=== PATIENT | female | born 1980 | race Caucasian/White ===

== ENCOUNTER 2017-03-08 06:59 | Emergency (ER) | payer OTHER ==
[2017-03-08] MEDS ORDERED: Sodium Chloride 0.9% 1000 ML 1,000 ML IV STA (07:34)
[2017-03-08] MEDS ORDERED: Zofran 4 MG/2 ML VIAL IV ONE (07:34)
[2017-03-08] MEDS ORDERED: Zofran 4 MG/2 ML VIAL ONE (07:37)
[2017-03-08] MEDS ORDERED: Sodium Chloride 0.9% 1000 ML 1,000 ML ONE (07:37)
--- NOTE | 2017-03-08 07:48 | ERPHSYRPT ---
- History of Present Illness Time Seen by Provider: 03/08/17 07:33 Source: patient Exam Limitations: no limitations Patient Subjective Stated Complaint: pt states last pm at 2100 she developed numbness to left side of mouth and achiness in left arm. Triage Nursing Assessment: pt pinkl, warm, dry. ambulated into ER without difficulty. pt speach appropriate no slurring or garbeled. pt laert and oriented x3. pt currently has a month haltor monitor in place. no facila drooping. Physician History: The patient is a 36-year-old female with multiple complaints stating that she didn't feel well on her way to work so she wanted to be evaluated. She complains of a numb feeling in her left inner cheek that began yesterday evening at 9:00. She also developed some achiness in her left arm and shoulder from approximately her neck down to her elbow. And now today or she is going into work she is feeling nauseated and generally not feeling well. Nothing makes the cheek numbness or left arm achiness better or worse. Moving her arm does not make it worse. She has not taken any medicines. About 2 weeks ago she began having intermittent chest tightness. She has seen her local physician 2 times and the first time was placed on a 24 hour orange picker. The second time she was placed on a 30 day orange picker. She has not had any chest tightness today or yesterday. Her past medical history is significant for an emergency . She also stated that during her last vaginal delivery she threw a "clot". A large workup was done including a head CT. She has been doing fine ever since that episode. Timing/Duration: yesterday, hour(s) (10) Severity: mild Modifying Factors: Improves With: nothing Associated Symptoms: nausea Allergies/Adverse Reactions: zolpidem [From Ambien] Adverse Reaction (Verified 03/08/17 07:14) Hx Tetanus, Diphtheria Vaccination/Date Given: Yes (up to date) Hx Influenza Vaccination/Date Given: No Hx Pneumococcal Vaccination/Date Given: No Immunizations Up to Date: Yes - Review of Systems Constitutional: No Fever, No Chills Eyes: No Symptoms Ears, Nose, & Throat: No Symptoms Respiratory: No Cough, No Dyspnea Cardiac: No Chest Pain, No Edema, No Syncope Abdominal/Gastrointestinal: Nausea Genitourinary Symptoms: No Dysuria Musculoskeletal: No Back Pain, No Neck Pain Skin: No Rash Neurological: Sensory Changes Psychological: No Symptoms Endocrine: No Symptoms Hematologic/Lymphatic: No Symptoms Immunological/Allergic: No Symptoms All Other Systems: Reviewed and Negative - Past Medical History Pertinent Past Medical History: No - Past Surgical History Past Surgical History: Yes Female Surgical History: Hysterectomy, Section - Social History Smoking Status: Current every day smoker How long have you smoked: 20 Exposure to second hand smoke: No Drug Use: none Patient Lives Alone: No - Female History Hx Last Menstrual Period: hyster - Nursing Vital Signs Nursing Vital Signs: Initial Vital Signs Temperature 97.7 F 03/08/17 07:08 Pulse Rate 83 03/08/17 07:08 Respiratory Rate 18 03/08/17 07:08 Blood Pressure 127/81 03/08/17 07:08 O2 Sat by Pulse Oximetry 100 03/08/17 07:08 Pain Scale Pain Intensity 0 - Physical Exam General Appearance: no apparent distress, alert Eye Exam: PERRL/EOMI, eyes nml inspection Ears, Nose, Throat Exam: normal ENT inspection, TMs normal, pharynx normal, moist mucous membranes Neck Exam: normal inspection, non-tender, supple, full range of motion Respiratory Exam: normal breath sounds, lungs clear, No respiratory distress Cardiovascular Exam: regular rate/rhythm, normal heart sounds, normal peripheral pulses Gastrointestinal/Abdomen Exam: soft, normal bowel sounds, No tenderness, No mass Pelvic Exam: not done Rectal Exam: not done Back Exam: normal inspection, normal range of motion, No CVA tenderness, No vertebral tenderness Extremity Exam: normal inspection, normal range of motion, pelvis stable, No parasthesia, No limited range of motion, No tenderness Neurologic Exam: alert, oriented x 3, cooperative, director prospect II-XII nml as tested, sensation nml, No motor deficits, No sensory deficit Skin Exam: normal color, warm, dry, No rash Lymphatic Exam: No adenopathy SpO2 Interpretation: normal SpO2: 100 Oxygen Delivery: Room Air - Course EKG Interpreted by Me: RATE, Sinus Rhythm, NORMAL AXIS, NORMAL INTERVALS, NORMAL QRS, NORMAL ST-T - Radiology Exams Chest X-ray Interpretation: Teleradiologist Report, Negative (Per Dr El) - CT Exams Head CT Interpretation: Negative, Tele-radiologist Report (Per Dr El) Ordered Tests: Active Orders 24 hr Category Date Time Status EKG-ER Only STAT Care 03/08/17 07:34 Active IV Insertion STAT Care 03/08/17 07:34 Active CHEST 2 VIEWS (PA AND LAT) Stat Exams 03/08/17 07:34 Completed HEAD WITHOUT CONTRAST [CT] Stat Exams 03/08/17 07:36 Completed CBC W DIFF Stat Lab 03/08/17 07:20 Completed CMP Stat Lab 03/08/17 07:20 Completed CULTURE,URINE Stat Lab 03/08/17 07:20 Received LIPASE Stat Lab 03/08/17 07:20 Completed UA W/ MICROSCOPIC Stat Lab 03/08/17 07:20 Completed Urine Triage Profile Stat Lab 03/08/17 07:20 Completed Medication Summary Discontinued Medications Generic Name Dose Route Start Last Admin Trade Name Toddq PRN Reason Stop Dose Admin Sodium Chloride 1,000 mls @ 999 mls/hr 03/08/17 07:34 03/08/17 07:44 Sodium Chloride 0.9% 1000 Ml IV 03/08/17 08:34 999 mls/hr .Q1H1M STA Administration Sodium Chloride Confirm 03/08/17 07:37 Sodium Chloride 0.9% 1000 Ml Administered 03/08/17 07:38 Dose 1,000 mls @ ud .ROUTE .STK-MED ONE Ondansetron HCl 4 mg 03/08/17 07:34 03/08/17 07:45 Zofran 4 Mg/2 Ml Vial IV 03/08/17 07:35 4 mg STAT ONE Administration Ondansetron HCl Confirm 03/08/17 07:37 Zofran 4 Mg/2 Ml Vial Administered 03/08/17 07:38 Dose 4 mg .ROUTE .STK-MED ONE Potassium Chloride 20 meq 03/08/17 08:20 03/08/17 08:24 Klor Con 10 Meq PO 03/08/17 08:21 20 meq STAT ONE Administration Potassium Chloride Confirm 03/08/17 08:23 Klor Con 10 Meq Administered 03/08/17 08:24 Dose 20 meq PO .STK-MED ONE Lab/Rad Data: Laboratory Result Diagrams 03/08/17 07:20 03/08/17 07:20 Laboratory Results 03/08/17 03/08/17 03/08/17 Range/Units 07:20 07:20 07:20 WBC 9.2 (4.0-10.5) K/mm3 RBC 4.27 (4.1-5.4) M/mm3 Hgb 12.3 (12.0-16.0) gm/dl Hct 37.9 (35-47) % MCV 88.8 (78-100) fl MCH 28.8 (26-32) pg MCHC 32.5 (32-36) g/dl RDW 13.7 (11.5-14.0) % Plt Count 248 (150-450) K/mm3 MPV 11.2 H (6-9.5) fl Gran % 57.4 (36.0-66.0) % Lymphocytes % 33.2 (24.0-44.0) % Monocytes % 5.5 (0.0-12.0) % Eosinophils % 3.6 (0.00-5.0) % Basophils % 0.3 (0.0-0.4) % Basophils # 0.03 (0-0.4) Sodium 142 (136-145) mEq/L Potassium 3.2 L (3.5-5.1) mEq/L Chloride 105 (98-107) mEq/L Carbon Dioxide 26.4 (21-32) mEq/L Anion Gap 13.9 (5-15) MEQ/L BUN 13 (9-20) mg/dL Creatinine 1.03 (0.55-1.30) mg/dl Estimated GFR > 60 ML/MIN Glucose 119 H (70-110) MG/DL Calcium 9.2 (8.5-10.1) mg/dL Total Bilirubin 0.40 (0.2-1.0) mg/dL AST 16 (15-37) U/L ALT 19 (12-78) U/L Alkaline Phosphatase 83 (46-116) U/L Serum Total Protein 7.2 (6.4-8.2) gm/dL Albumin 4.0 (3.4-5.0) g/dL Lipase 175 (73-393) U/L Ur Collection Type Urine Color (YELLOW) Urine Appearance (CLEAR) Urine pH (5-6) Ur Specific [place] (1.005-1.025) Urine Protein (Negative) Urine Ketones (NEGATIVE) Urine Blood (0-5) Marco/ul Urine Nitrite (NEGATIVE) Urine Bilirubin (NEGATIVE) Urine Urobilinogen (0-1) mg/dL Ur Leukocyte Esterase (NEGATIVE) Urine Microscopic RBC (0-2) /HPF Urine Microscopic WBC (0-5) /HPF Ur Epithelial Cells (FEW) /HPF Urine Culture Reflexed (NO) Urine Glucose (NEGATIVE) mg/dL Urine Opiates Level NEG. (NEGATIVE) Ur Methadone NEG. (NEGATIVE) Urine Barbiturates NEG. (NEGATIVE) Ur Phencyclidine (PCP) NEG. (NEGATIVE) Urine Amphetamine NEG. (NEGATIVE) U Benzodiazepine Level NEG. (NEGATIVE) Urine Cocaine NEG. (NEGATIVE) Urine Marijuana (THC) NEG. (NEGATIVE) Specimen Received 03/08/17 Range/Units 07:20 WBC (4.0-10.5) K/mm3 RBC (4.1-5.4) M/mm3 Hgb (12.0-16.0) gm/dl Hct (35-47) % MCV (78-100) fl MCH (26-32) pg MCHC (32-36) g/dl RDW (11.5-14.0) % Plt Count (150-450) K/mm3 MPV (6-9.5) fl Gran % (36.0-66.0) % Lymphocytes % (24.0-44.0) % Monocytes % (0.0-12.0) % Eosinophils % (0.00-5.0) % Basophils % (0.0-0.4) % Basophils # (0-0.4) Sodium (136-145) mEq/L Potassium (3.5-5.1) mEq/L Chloride (98-107) mEq/L Carbon Dioxide (21-32) mEq/L Anion Gap (5-15) MEQ/L BUN (9-20) mg/dL Creatinine (0.55-1.30) mg/dl Estimated GFR ML/MIN Glucose (70-110) MG/DL Calcium (8.5-10.1) mg/dL Total Bilirubin (0.2-1.0) mg/dL AST (15-37) U/L ALT (12-78) U/L Alkaline Phosphatase (46-116) U/L Serum Total Protein (6.4-8.2) gm/dL Albumin (3.4-5.0) g/dL Lipase (73-393) U/L Ur Collection Type VOID Urine Color YELLOW (YELLOW) Urine Appearance CLEAR (CLEAR) Urine pH 5.0 (5-6) Ur Specific [place] 1.015 (1.005-1.025) Urine Protein NEGATIVE (Negative) Urine Ketones NEGATIVE (NEGATIVE) Urine Blood 250 (0-5) Marco/ul Urine Nitrite NEGATIVE (NEGATIVE) Urine Bilirubin NEGATIVE (NEGATIVE) Urine Urobilinogen NORMAL (0-1) mg/dL Ur Leukocyte Esterase TRACE (NEGATIVE) Urine Microscopic RBC 2-5 (0-2) /HPF Urine Microscopic WBC 2-5 (0-5) /HPF Ur Epithelial Cells RARE (FEW) /HPF Urine Culture Reflexed YES (NO) Urine Glucose NEGATIVE (NEGATIVE) mg/dL Urine Opiates Level (NEGATIVE) Ur Methadone (NEGATIVE) Urine Barbiturates (NEGATIVE) Ur Phencyclidine (PCP) (NEGATIVE) Urine Amphetamine (NEGATIVE) U Benzodiazepine Level (NEGATIVE) Urine Cocaine (NEGATIVE) Urine Marijuana (THC) (NEGATIVE) Specimen Received 03/08/2017 0740 - Progress Progress: improved Progress Note: 03/08/17 08:43 Pt feeling better after fluids and zofran 4 mg IV. - Departure Time of Disposition: 08:44 Departure Disposition: Home Clinical Impression: Nausea, Left arm pain, Numbness around mouth, Hypokalemia Condition: Stable Critical Care Time: No Referrals: PATIENCE QUIROGA, [employer] [Primary Care Provider] - Additional Instructions: You have a decreased potassium level in your blood. You were given potassium 20 mEq by mouth in the ER. For nausea you were given Zofran 4 mg and fluids by IV. Take Zofran 4 mg ODT every 6 hours as needed. Your head CT, EKG, and chest xray were normal. Follow-up in one to 2 days. Prescriptions: Ondansetron ODT 4 MG [Zofran Odt 4 mg] 1 tab PO Q6H PRN PRN #10 tab.rapdis PRN Reason: Nausea/Vomiting
[2017-03-08 07:54] LABS: BASOPHIL % 0.3 % (0.0-0.4); Eosinophil % 3.6 % (0.00-5.0); Granulocytes % 57.4 % (36.0-66.0); Lymphocytes % 33.2 % (24.0-44.0); Mean Cell Volume 88.8 fl (78-100); Mean Corpuscular Hemoglobin 28.8 pg (26-32); Mean Platelet Volume 11.2 fl (6-9.5); Monocytes % 5.5 % (0.0-12.0); Platelet Count 248 K/mm3 (150-450); Red Blood Count 4.27 M/mm3 (4.1-5.4); Red Cell Distribution Width 13.7 % (11.5-14.0); White Blood Count 9.2 K/mm3 (4.0-10.5)
[2017-03-08 08:09] LABS: Collection Type VOID
[2017-03-08 08:10] LABS: Bilirubin NEGATIVE (NEGATIVE); Blood 250 Ery/ul (0-5); COMPLETE URINE MICROSCOPIC? YES; Epithelial Cells RARE /HPF (FEW); Glucose NEGATIVE (NEGATIVE); Leukocyte Esterase TRACE (NEGATIVE)
[2017-03-08 08:11] LABS: ADD URINE CULTURE? YES (NO)
[2017-03-08 08:14] LABS: ALKALINE PHOSPHATASE 83 U/L (46-116); ANION GAP 13.9 MEQ/L (5-15); BLOOD UREA NITROGEN 13 mg/dL (9-20); CHLORIDE 105 mEq/L (98-107); Carbon Dioxide 26.4 mEq/L (21-32); Glucose 119 MG/DL (70-110); LIPASE 175 U/L (73-393); Potassium 3.2 mEq/L (3.5-5.1); SGOT/AST 16 U/L (15-37); SGPT/ALT 19 U/L (12-78); SODIUM 142 mEq/L (136-145); Total Protein 7.2 gm/dL (6.4-8.2)
[2017-03-08] MEDS ORDERED: Klor Con 10 MEQ PO ONE ×2 (08:20→08:23)
--- NOTE | 2017-03-08 08:32 | XRAY ---
Indication: Left arm and cheek numbness. Multiple contiguous axial images obtained through the head without contrast. Comparison: None Normal appearing brain parenchyma, ventricles, and bony calvarium. Visualized paranasal sinuses and mastoid air cells are clear. Impression: Normal CT head without contrast exam. CT DI 70.77
--- NOTE | 2017-03-08 08:38 | XRAY ---
Indication: Chest pain. Comparison: July 11, 2007. PA/lateral chest again demonstrates normal heart, lungs, and bony thorax.
[2017-03-08 09:10] VITALS: BP 117/68; PULSE 68; O2SAT 98
== END 2017-03-08 09:10 | disposition home or self-care (01) ==
LOC: ED 06:59
DX: R11.0 Nausea (principal); M79.602 Pain in left arm; R20.0 Anesthesia of skin; E87.6 Hypokalemia
CPT/HCPCS: 36000; 36415; 70450; 71020; 80053; 80307; 81000; 83690; 85025; 87086; 93005; 96360; 96374; 99284; J2405; A9270-GY

== ENCOUNTER 2019-01-08 14:44 | Emergency (ER) | payer OTHER ==
[2019-01-08 15:33] VITALS: BP 96/64; PULSE 73; O2SAT 99
--- NOTE | 2019-01-08 16:00 | ERPHSYRPT ---
- History of Present Illness Time Seen by Provider: 01/08/19 15:56 Source: patient Exam Limitations: no limitations Patient Subjective Stated Complaint: Pt began bleeding vaginally and went to the para machine operator and they prescribed some estrogen, back began having pain and twitching, states that her urethra is coming out, reports that you can see tissue, having problems stopping urinating and it parsons and continues to dribble Triage Nursing Assessment: Pt's vitals wnl, denies pain, has pressure, pressure in her lower back and by her vagina, Physician History: 38-year-old female without any significant past medical history for few weeks . She started having a burning and tearing pain around her due to trying in her vagina and she is feeling like her urethritis falling down and due to that she is not able to hold her urine at all. She has become incontinent without sensory of illness. She was seen by her para machine operator and see prescribe her estrogen vaginal cream, which has not helped her at all. Timing/Duration: day(s) Quality: burning Onset Location: vaginal Pain Radiation: urethral Severity of Pain-Max: moderate Severity of Pain-Current: moderate Prior abdominal problems: none Sexual intercourse history: non-contributory Modifying Factors: Improves With: movement, walking (makes it worse) Associated Symptoms: dysuria, nocturia, urinary frequency, loss of bladder control Allergies/Adverse Reactions: zolpidem [From Ambien] Adverse Reaction (Verified 01/08/19 15:34) Home Medications: Levetiracetam 500 mg PO DAILY 01/08/19 [History] Hx Tetanus, Diphtheria Vaccination/Date Given: Yes (up to date) Hx Influenza Vaccination/Date Given: No Hx Pneumococcal Vaccination/Date Given: No - Review of Systems Constitutional: No Fever, No Chills Eyes: No Symptoms Ears, Nose, & Throat: No Symptoms Respiratory: No Cough, No Dyspnea Cardiac: No Chest Pain, No Edema, No Syncope Abdominal/Gastrointestinal: No Abdominal Pain, No Nausea, No Vomiting, No Diarrhea Genitourinary Symptoms: Dysuria, Frequency, Hesitancy, Urgency, Flank Pain Musculoskeletal: No Back Pain, No Neck Pain Skin: No Rash Neurological: No Dizziness, No Focal Weakness, No Sensory Changes Psychological: No Symptoms Endocrine: No Symptoms All Other Systems: Reviewed and Negative - Past Medical History Pertinent Past Medical History: Yes Neurological History: Seizures - Past Surgical History Past Surgical History: Yes Female Surgical History: Hysterectomy, Section Other Surgical History: lasik - Social History Smoking Status: Current every day smoker How long have you smoked: 20 Exposure to second hand smoke: Yes Drug Use: none Patient Lives Alone: No - Female History Hx Now: No (hysterectomy) - Nursing Vital Signs Nursing Vital Signs: Initial Vital Signs Temperature 98.8 F 01/08/19 15:23 Pulse Rate 73 01/08/19 15:23 Blood Pressure 96/64 01/08/19 15:23 O2 Sat by Pulse Oximetry 99 01/08/19 15:23 Pain Scale Pain Intensity 0 - Physical Exam General Appearance: no apparent distress, alert Eye Exam: PERRL/EOMI, eyes nml inspection Ears, Nose, Throat Exam: normal ENT inspection, TMs normal, pharynx normal, moist mucous membranes Neck Exam: normal inspection, non-tender, supple, full range of motion Respiratory Exam: normal breath sounds, lungs clear, No respiratory distress Cardiovascular Exam: regular rate/rhythm, normal heart sounds, normal peripheral pulses Gastrointestinal/Abdomen Exam: soft, No tenderness, No mass Pelvic Exam: other (urethral prolapse) Back Exam: normal inspection, normal range of motion, No CVA tenderness, No vertebral tenderness Extremity Exam: normal inspection, normal range of motion, pelvis stable Neurologic Exam: alert, oriented x 3, cooperative, stitcher hand II-XII nml as tested, normal mood/affect, sensation nml, No motor deficits Skin Exam: normal color, warm, dry Lymphatic Exam: No adenopathy SpO2: 99 - Progress Progress: unchanged Air Movement: good Blood Culture(s) Obtained: No Antibiotics given: No Counseled pt/family regarding: diagnosis, need for follow-up - Departure Departure Disposition: Home Clinical Impression: Urethral prolapse Condition: Stable Critical Care Time: No Referrals: PATIENCE QUIROGA, [employer] [Primary Care Provider] - Instructions: Pelvic Organ Prolapse, How to Do Kegel Exercises, Pelvic Floor Exercises, Pelvic Muscle (Kegel) Exercises Additional Instructions: Discharge/Care Plan GERONIMO YAÑEZ was seen on 01/08/19 in the Emergency Room. The patient was counseled regarding Diagnosis,Lab results, Imaging studies, need for follow up and when to return to the Emergency Room. Prescriptions given: Discharge Note I have spoken with the patient and/or caregivers. I have explained the patient' s condition, diagnosis and treatment plan based on the information available to me at this time. I have answered the patient's and/or caregiver's questions and addressed any concerns. The patient and/or caregivers have as good understanding of the patient's diagnosis, condition and treatment plan as can be expected at this point. The vital signs have been stable. The patient's condition is stable and appropriate for discharge from the emergency department. The patient will pursue further outpatient evaluation with the primary care physician or other designated or consulting physician as outlined in the discharge instructions. The patient and/or caregivers are agreeable to this plan of care and follow-up instructions have been explained in detail. The patient and/or caregivers have received these instruction. The patient/and or caregivers are aware that any significant change in condition or worsening of symptoms should prompt an immediate return to this or the closest emergency department or call 911. Prescriptions: Oxybutynin Chloride Xl 5 mg [Ditropan XL 5 MG] 5 mg PO DAILY #30 tab
== END 2019-01-08 16:53 | disposition home or self-care (01) ==
LOC: ED 14:44
DX: N81.0 Urethrocele (principal)
CPT/HCPCS: 99283

== ENCOUNTER 2022-12-24 13:06 | Emergency (ER) | payer BC, OTHER ==
[2022-12-24 13:30] VITALS: RESP 16
[2022-12-24] MEDS ORDERED: Sodium Chloride 0.9% 1000 ML 1,000 ML IV STA (14:06)
[2022-12-24] MEDS ORDERED: TYLENOL 325 MG PO STA (14:08)
[2022-12-24] MEDS ORDERED: TYLENOL 325 MG ONE (14:20)
[2022-12-24] MEDS ORDERED: Sodium Chloride 0.9% 1000 ML 1,000 ML ONE (14:20)
[2022-12-24 14:21] LABS: Absolute Neutrophil Ct (ANC) 7.83 x10^3/uL (1.4-6.9); BASOPHIL % 0.3 % (0.0-0.4); Basophil (Absolute #) 0.04 x10^3/uL (0-0.4); Eosinophil % 1.7 % (0.00-5.0); Eosinophil (Absolute #) 0.21 x10^3/uL (0-0.5); Hematocrit 37.3 % (35-47); Hemoglobin 12.3 g/dL (12.0-16.0); IMMATURE GRAN # 0.06 x10^3u/L (0.00-0.03); IMMATURE GRAN % 0.5 % (0.00-0.4); Lymphocyte (Absolute #) 3.54 x10^3/uL (1.0-4.6); Mean Cell Volume 89.4 fL (78-100); Mean Corpuscular Hemoglobin 29.5 pg (26-32); Mean Platelet Volume 10.9 fL (7.5-11.0); Monocyte (Absolute #) 0.54 x10^3/uL (0.0-1.3); Monocytes % 4.4 % (0.0-12.0); Neutrophil % 64.1 % (36.0-66.0); Platelet Count 249 x10^3/uL (150-450); Red Blood Count 4.17 x10^6/uL (4.1-5.4); Red Cell Distribution Width 13.1 % (11.5-14.0); White Blood Count 12.2 x10^3/uL (4.0-10.5)
[2022-12-24 14:32] LABS: INR 0.95 (0.8-3.0); PROTIME 10.4 SECONDS (9.4-12.5); PTT 28.1 SECONDS (25.1-36.5)
--- NOTE | 2022-12-24 14:43 | XRAY ---
Indication: Blurred vision. Headache. Sagittal, coronal, and axial MRI brain performed without contrast using T1, T2, FLAIR, diffusion, and ADC sequences. Comparison: None Ventriculosulcal pattern appears symmetric. No acute intracranial hemorrhage, abnormal extra-axial fluid collection, or mass effect. Diffusion images negative for restricted signal. Fourth ventricle is midline without hydrocephalus. 7/8 cranial nerve complex bilaterally symmetric. Normal flow void signal within the major intracerebral circulation. Normal appearing craniocervical junction and sella turcica. Paranasal sinuses are clear. Impression: Normal MRI brain without contrast exam.
[2022-12-24 14:48] LABS: ALBUMIN 4.4 g/dL (3.5-5.0); ALKALINE PHOSPHATASE 72 U/L (38-126); ANION GAP 13.9 MEQ/L (5-15); BLOOD UREA NITROGEN 10 mg/dL (7-17); CHLORIDE 105 mmol/L (98-107); CK-Creatinine Phosphokinase 68 U/L (30-135); Calcium 9.2 mg/dL (8.4-10.2); Carbon Dioxide 24 mmol/L (22-30); Creatinine 1 0.71 mg/dL (0.52-1.04); EST GLOMERULAR FILTRATION RATE > 60.0 ML/MIN; Glucose 114 mg/dL (74-106); NT PRO BNPII 55.8 pg/mL (<300); Potassium 3.5 mmol/L (3.5-5.1); SGOT/AST 25 U/L (14-36); SGPT/ALT 16 U/L (0-35); SODIUM 140 mmol/L (137-145)
[2022-12-24 15:12] LABS: HCG, Quantitative (Inhouse) 5.31 mIU/ml
[2022-12-24 15:53] VITALS: BP 98/63; PULSE 62; O2SAT 98
--- NOTE | 2022-12-24 16:05 | ERPHSYRPT ---
- History of Present Illness Time Seen by Provider: 12/24/22 13:06 Patient Subjective Stated Complaint: pt states she heard a pop behind her eye last night. pt states that she went to the eye doctor this morning and she sta eric that he wanted her to go to the er. 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 It is continuous, seen customer care consultant today with dilated eye exam normal bilaterally and is sent in here for further evaluation. Patient reports mild dull aching headache with some left facial tingling/numb sensation without difficulty speech or focal weakness. Denies having similar symptoms in the past. Denies any photophobia or phonophobia, no nausea or vomiting reported. Denies any chest pain palpitations or shortness of breath. Denies any alcohol or drug use. Denies any difficulty ambulation. Allergies/Adverse Reactions: zolpidem [From Ambien] Adverse Reaction (Verified 12/24/22 13:14) Home Medications: No Reportable Medications [No Reported Medications] 12/24/22 [History] Hx Tetanus, Diphtheria Vaccination/Date Given: Yes Hx Influenza Vaccination/Date Given: No Hx Pneumococcal Vaccination/Date Given: No Travel Risk - International Travel Have you traveled outside of the country in past 3 weeks: No - Coronavirus Screening Are you exhibiting any of the following symptoms?: No Close contact with a COVID-19 positive Pt in past 14-21 Days: No - Vaccine Status Have you recieved a Covid-19 vaccination: Yes Food Service Representative: Moderna - Vaccination Dates Date of 2cond Vaccination (if applicable): n/a - Review of Systems Constitutional: No Symptoms Eyes: Vision Changes Ears, Nose, & Throat: No Symptoms Respiratory: No Symptoms Cardiac: No Symptoms Abdominal/Gastrointestinal: No Symptoms Genitourinary Symptoms: No Symptoms Musculoskeletal: No Symptoms Skin: No Symptoms Neurological: Headache, Sensory Changes Psychological: No Symptoms Endocrine: No Symptoms Hematologic/Lymphatic: No Symptoms Immunological/Allergic: No Symptoms - Past Medical History Pertinent Past Medical History: Yes Neurological History: Seizures Cardiac History: No Pertinent History Respiratory History: No Pertinent History Endocrine Medical History: No Pertinent History Musculoskeletal History: No Pertinent History GI Medical History: No Pertinent History History: No Pertinent History Psycho-Social History: No Pertinent History Female Reproductive Disorders: No Pertinent History - Past Surgical History Past Surgical History: Yes Female Surgical History: Hysterectomy, Section Other Surgical History: lasik - Social History Smoking Status: Current every day smoker How long have you smoked: 20 Exposure to second hand smoke: No Drug Use: none Patient Lives Alone: No - Female History Hx Now: No - Nursing Vital Signs Nursing Vital Signs: Initial Vital Signs Pulse Rate 79 12/24/22 13:08 Respiratory Rate 16 12/24/22 13:08 Blood Pressure 137/79 12/24/22 13:08 O2 Sat by Pulse Oximetry 100 12/24/22 13:08 Pain Scale Pain Intensity 2 - [place] Coma Scale Best Eye Response (Dian): (4) open spontaneously Best Verbal Response (Dian): (5) oriented Best Motor Response ([place]): (6) obeys commands [place] Total: 15 - Physical Exam General Appearance: no apparent distress, alert Eye Exam: bilateral eye: normal inspection, PERRL (Dilated 7 mm), EOMI Ears, Nose, Throat Exam: normal ENT inspection, TMs normal, pharynx normal, moist mucous membranes Neck Exam: normal inspection, non-tender, supple, full range of motion Respiratory: normal breath sounds, lungs clear Cardiovascular: regular rate/rhythm, normal heart sounds Gastrointestinal: soft, normal bowel sounds, No tenderness Back Exam: normal inspection, normal range of motion Extremity Exam: normal inspection, normal range of motion, pelvis stable Mental Status: alert, oriented x 3, cooperative health navigator Exam: normal hearing, normal speech, PERRL (Dilated 7 mm), facial paresthesias (Mild decrease sensation of fine touch left face), No facial asymmetry, No facial droop, No facial weakness Coordination/Gait: normal finger to nose, normal gait, normal cerebellar function, negative Romberg's sign Motor/Sensory: no motor deficit, no pronator drift, negative Babinski's sign, sensory deficit (Mild sensation of decreased fine touch left face) DTR: bicep (R): 2+, bicep (L): 2+, tricep (R): 2+, tricep (L): 2+, knee (R): 2+, knee (L): 2+ Skin Exam: normal color SpO2 Interpretation: normal SpO2: 98 O2 Delivery: Room Air - Course EKG Interpreted by Me: RATE (62), Sinus Rhythm, NORMAL AXIS, NORMAL INTERVALS, NORMAL QRS Ordered Tests: Active Orders 24 hr Category Date Time Status Telecommunications Line Mechanic STAT Care 12/24/22 14:07 Active EKG-ER Only STAT Care 12/24/22 14:06 Active IV Insertion STAT Care 12/24/22 14:06 Active MRI BRAIN W/O CONTRAST [MRI] Stat Exams 12/24/22 13:46 Completed CBC W DIFF Stat Lab 12/24/22 13:50 Completed CK-Creatinine Phosphokinase Stat Lab 12/24/22 13:50 Completed CMP Stat Lab 12/24/22 13:50 Completed HCG, Quantitative (Inhouse) Stat Lab 12/24/22 13:50 Completed NT PRO BNPII Stat Lab 12/24/22 13:50 Completed PROTIME WITH INR Stat Lab 12/24/22 13:50 Completed PTT Stat Lab 12/24/22 13:50 Completed TROPONIN Q4H Lab 12/24/22 13:50 Completed TROPONIN Q4H Lab 12/24/22 18:15 Ordered TROPONIN Q4H Lab 12/24/22 22:15 Ordered Medication Summary Discontinued Medications Generic Name Dose Route Start Last Admin Trade Name Mark PRN Reason Stop Dose Admin Acetaminophen 650 mg 12/24/22 14:08 12/24/22 14:21 Acetaminophen 325 Mg Tablet PO 12/24/22 14:09 650 mg STAT STA Administration Acetaminophen Confirm 12/24/22 14:20 Acetaminophen 325 Mg Tablet Administered 12/24/22 14:21 Dose 650 mg .ROUTE .STK-MED ONE Sodium Chloride 1,000 mls @ 999 mls/hr 12/24/22 14:06 12/24/22 15:25 Sodium Chloride 0.9% 1000 Ml IV 12/24/22 15:06 Infused .Q1H1M STA Infusion Sodium Chloride Confirm 12/24/22 14:20 Sodium Chloride 0.9% 1000 Ml Administered 12/24/22 14:21 Dose 1,000 mls @ .ROUTE .[facility] ONE Lab/Rad Data: Laboratory Result Diagrams 12/24/22 13:50 12/24/22 13:50 Laboratory Results 12/24/22 12/24/22 12/24/22 Range/Units 13:50 13:50 13:50 WBC (4.0-10.5) x10^3/uL RBC (4.1-5.4) x10^6/uL Hgb (12.0-16.0) g/dL Hct (35-47) % MCV (78-100) fL MCH (26-32) pg MCHC (32-36) g/dL RDW (11.5-14.0) % Plt Count (150-450) x10^3/uL MPV (7.5-11.0) fL Gran % (36.0-66.0) % Immature Gran % (Auto) (0.00-0.4) % Nucleat RBC Rel Count (0.00-0.1) % Eos # (Auto) (0-0.5) x10^3/uL Immature Gran # (Auto) (0.00-0.03) x10^3u/L Absolute Lymphs (auto) (1.0-4.6) x10^3/uL Absolute Monos (auto) (0.0-1.3) x10^3/uL Absolute Nucleated RBC (0.00-0.01) x10^3u/L Lymphocytes % (24.0-44.0) % Monocytes % (0.0-12.0) % Eosinophils % (0.00-5.0) % Basophils % (0.0-0.4) % Absolute Granulocytes (1.4-6.9) x10^3/uL Basophils # (0-0.4) x10^3/uL PT 10.4 (9.4-12.5) SECONDS INR 0.95 (0.8-3.0) APTT 28.1 (25.1-36.5) SECONDS Sodium 140 (137-145) mmol/L Potassium 3.5 (3.5-5.1) mmol/L Chloride 105 (98-107) mmol/L Carbon Dioxide 24 (22-30) mmol/L Anion Gap 13.9 (5-15) MEQ/L BUN 10 (7-17) mg/dL Creatinine 0.71 (0.52-1.04) mg/dL Estimated GFR > 60.0 ML/MIN Glucose 114 H (74-106) mg/dL Calcium 9.2 (8.4-10.2) mg/dL Total Bilirubin 0.40 (0.2-1.3) mg/dL AST 25 (14-36) U/L ALT 16 (0-35) U/L Alkaline Phosphatase 72 (38-126) U/L Creatine Kinase 68 (30-135) U/L Troponin I < 0.012 (0.000-0.034) ng/mL NT-Pro-B Natriuret Pep 55.8 (<300) pg/mL Serum Total Protein 7.0 (6.3-8.2) g/dL Albumin 4.4 (3.5-5.0) g/dL Beta HCG, Quant 5.31 mIU/ml 12/24/22 Range/Units 13:50 WBC 12.2 H (4.0-10.5) x10^3/uL RBC 4.17 (4.1-5.4) x10^6/uL Hgb 12.3 (12.0-16.0) g/dL Hct 37.3 (35-47) % MCV 89.4 (78-100) fL MCH 29.5 (26-32) pg MCHC 33.0 (32-36) g/dL RDW 13.1 (11.5-14.0) % Plt Count 249 (150-450) x10^3/uL MPV 10.9 (7.5-11.0) fL Gran % 64.1 (36.0-66.0) % Immature Gran % (Auto) 0.5 H (0.00-0.4) % Nucleat RBC Rel Count 0.0 (0.00-0.1) % Eos # (Auto) 0.21 (0-0.5) x10^3/uL Immature Gran # (Auto) 0.06 H (0.00-0.03) x10^3u/L Absolute Lymphs (auto) 3.54 (1.0-4.6) x10^3/uL Absolute Monos (auto) 0.54 (0.0-1.3) x10^3/uL Absolute Nucleated RBC 0.00 (0.00-0.01) x10^3u/L Lymphocytes % 29.0 (24.0-44.0) % Monocytes % 4.4 (0.0-12.0) % Eosinophils % 1.7 (0.00-5.0) % Basophils % 0.3 (0.0-0.4) % Absolute Granulocytes 7.83 H (1.4-6.9) x10^3/uL Basophils # 0.04 (0-0.4) x10^3/uL PT (9.4-12.5) SECONDS INR (0.8-3.0) APTT (25.1-36.5) SECONDS Sodium (137-145) mmol/L Potassium (3.5-5.1) mmol/L Chloride (98-107) mmol/L Carbon Dioxide (22-30) mmol/L Anion Gap (5-15) MEQ/L BUN (7-17) mg/dL Creatinine (0.52-1.04) mg/dL Estimated GFR ML/MIN Glucose (74-106) mg/dL Calcium (8.4-10.2) mg/dL Total Bilirubin (0.2-1.3) mg/dL AST (14-36) U/L ALT (0-35) U/L Alkaline Phosphatase (38-126) U/L Creatine Kinase (30-135) U/L Troponin I (0.000-0.034) ng/mL NT-Pro-B Natriuret Pep (<300) pg/mL Serum Total Protein (6.3-8.2) g/dL Albumin (3.5-5.0) g/dL Beta HCG, Quant mIU/ml - Progress Progress: improved, re-examined Progress Note: 12/24/22 16:01 42 years old female with remote history of seizures not on any medication for quite some time presented in the ER with chief complaint of blurry vision which started all of a sudden last night around 6 PM while she was watching her phone and felt a popping sensation followed by headache and blurry vision but no diplopia. It is continuous, seen customer care consultant today with dilated eye exam normal bilaterally and is sent in here for further evaluation. Patient reports mild dull aching headache with some left facial tingling/numb sensation without difficulty speech or focal weakness. Denies having similar symptoms in the past. Denies any photophobia or phonophobia, no nausea or vomiting reported. Denies any chest pain palpitations or shortness of breath. Denies any alcohol or drug use. Denies any difficulty ambulation. Patient has no obvious focal deficit except for some numbness in the left face. CT scan is out of order, I have obtained MRI head, patient is not in the window and obtained tele neuro consult. Neurology does not think patient has an acute neuro event going on and MRI is negative. Left facial numbness more likely peripheral etiology and recommended further work-up with ESR, CRP, MIRIAM outpatient. Outpatient neurology follow-up. Also recommended if symptoms persist needs to return to ER and need lumbar puncture to evaluate for opening pressure. Her symptoms could be an electrical phenomena with her history of previous seizure and would benefit with outpatient EEG as well. Did not recommend obtaining CT and CTAs, also no need for hospitalization. Patient is given Tylenol and fluids, on reevaluation her headache is resolved. Lab work fairly unremarkable with normal white count and no acute electrolyte abnormality. Normal troponin and EKG normal sinus rhythm with no arrhythmias or acute ischemic changes. I have discussed the results of work-up and neurology recommendations with patient and family, need for outpatient further evaluation and return to ER for symptoms/signs of worsening which they sound understanding. I have discussed patient findings, lab work and imaging, neurology recommendations with Dr. Reza patient's primary care and he will do outpatient work-up and neurology referral. At this point I do not think patient needs any further work-up and can be discharged. Discussed with : Jennfier, Other (Dr. Alex Gonzalez tele neurologist) Counseled pt/family regarding: lab results, diagnosis, need for follow-up, rad results Medical Desision Making - Independent Historian Additional History obtained from: Mother - Discussion of managment Care discussed with:: specialist (Dr. Alex Gonzalez neurologist) Agreed on:: Treatment plan, need for follow-up - Diagnostic Testing Diagnostic test were ordered, analyzed, and reviewed by me: Yes Radiological Interpretation: Reviewed by me, Discussed w/ radiologist - Departure Departure Disposition: Home Clinical Impression: Blurry vision, bilateral, Left facial numbness Condition: Stable Critical Care Time: No Referrals: CARLTON REZA MD [Primary Care Provider] - Follow up with PCP 1 day Instructions: Migraines (DC), Stroke (DC) Additional Instructions: Follow-up with primary care for reevaluation and need further work-up with labs and EEG to evaluate for any seizure activity. Return to ER for intractable h eadache, worsening vision/numbness or if having any weakness etc.
== END 2022-12-24 16:13 | disposition home or self-care (01) ==
LOC: ED 13:06
DX: H53.8 Other visual disturbances (principal); R20.0 Anesthesia of skin; R51.9 Headache, unspecified; Z72.0 Tobacco use
CPT/HCPCS: 36000; 36415; 70551; 80053; 82550; 83880; 84484; 84702; 85025; 85610; 85730; 93005; 93041; 99284; A9270-GY